=== PATIENT | female | born 1980 | race Caucasian/White ===

== ENCOUNTER 2018-07-16 22:52 | Emergency (ER) | payer OTHER ==
[~2018-07-16] VITALS: Ht 175.3 cm; Wt 104.5 kg
[2018-07-16 23:03] VITALS: Ht 175.3 cm; Wt 104.5 kg
[2018-07-16] MEDS ORDERED: LISINOPRIL20 MG PO (23:06)
[2018-07-16] MEDS ORDERED: PAXIL10 MG PO (23:06)
[2018-07-16] MEDS ORDERED: XARELTO15 MG PO (23:06)
[2018-07-17] MEDS ORDERED: ARTHROTEC EC 71 EACH PO (01:04)
[2018-07-17] MEDS ORDERED: ROBAXIN500 MG PO (01:04)
[2018-07-17 01:29] VITALS: BP 130/74
== END 2018-07-17 01:25 | disposition home or self-care (01) ==
LOC: D.ER 22:52
DX: S16.1XXA Strain of muscle, fascia and tendon at neck level, initial encounter (principal); X58.XXXA Exposure to other specified factors, initial encounter; Y93.89 Activity, other specified; Y92.019 Unspecified place in single-family (private) house as the place of occurrence of the external cause; M54.12 Radiculopathy, cervical region; I10 Essential (primary) hypertension; F17.200 Nicotine dependence, unspecified, uncomplicated